=== PATIENT | female | born 1995 | race Caucasian/White ===

== ENCOUNTER 2022-01-08 02:24 | Outpatient (CLI) | payer MEDICAID, OTHER | END 2022-01-08 02:25 | disposition short-term general hospital (02) | LOC: EMS 02:24 | DX: R41.82 Altered mental status, unspecified (principal); S01.511A Laceration without foreign body of lip, initial encounter; V43.62XA Car passenger injured in collision with other type car in traffic accident, initial encounter; Y92.414 Local residential or business street as the place of occurrence of the external cause | CPT/HCPCS: A0425; A0427 ==